=== PATIENT | female | born 2005 | race Caucasian/White ===

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

== ENCOUNTER 2025-03-05 10:42 | Day surgery (SDC) | payer OTHER ==
[~2025-03-05] VITALS: Ht 165.1 cm; Wt 67.1 kg
[~2025-03-05 10:42] MED LIST: Midazolam HCl 1MG / ML 2ML Vial ONE
[2025-03-05] MEDS ORDERED: CeFAZolin Sodium 2,000 MG VIAL ONE (11:03)
[2025-03-05] MEDS ORDERED: Tranexamic Acid 100 ML IV ONE (11:04)
[2025-03-05] MEDS ORDERED: Dexmedetomidine HCL 200 MCG / 2 ML ONE (11:12)
--- NOTE | 2025-03-05 11:33 | NUR ---
03/05/25 1133 Cira Musa ADDUCTOR CANAL BLOCK W/ DR LAMA T/O 1123 START 1124 END 1128 PT TOLERATED PROCEDURE WELL. PT ON 2L O2 VIA N/C THROUGHOUT PROCEDURE. SPO2 AND HR MONITORED THROUGHOUT.
[2025-03-05] MEDS ORDERED: FentaNYL Citrate 50 MCG/ML 2 ML Injection ONE ×2 (11:36→14:11)
[2025-03-05] MEDS ORDERED: Vancomycin HCl 1000 MG ADDvantage ONE (12:03)
[2025-03-05] MEDS ORDERED: ePHEDrine Sulfate 50 MG/ML 1ML Injection ONE (12:11)
--- NOTE | 2025-03-05 12:20 | NUR ---
03/05/25 1220 Aisha Peng ARMS SECURED ON PADDED ARM BOARDS, RIGHT KNEE POST, PILLOW UNDER HEAD, SEAT BELT.
[2025-03-05] MEDS ORDERED: Ondansetron HCl 2 MG / ML 2ML Vial ONE ×2 (13:28→14:10)
[2025-03-05] MEDS ORDERED: HYDROmorphone HCl/Pf 1MG SYR ONE (13:28)
--- NOTE | 2025-03-05 15:04 | NUR ---
03/05/25 1505 Edith Colbert PT RESTING IN BED. COMPLAINS OF 7/10 PAIN TO RIGHT LEG. VSS. POLAR PACK IN PLACE. RN PROVIDED DRINKS AND SNACKS AND PT IS ABLE TO TOLERATE PO INTAKE.
== END 2025-03-05 15:30 | disposition home or self-care (01) ==
LOC: ORSCSDS 10:42
PROVIDERS: Orthopaedic Surgery Sports Medicine
PROC: 0MRN47Z Replacement of Right Knee Bursa and Ligament with Autologous Tissue Substitute, Percutaneous Endoscopic Approach (ICD-10-PCS; principal; 2025-03-05 12:00)
DX: S83.511A Sprain of anterior cruciate ligament of right knee, initial encounter (principal); Y93.66 Activity, soccer
CPT/HCPCS: A9270; C1713; C1776; C1889; J0166; J0690; J1171; J2250; J2405; J2704; J3010; J3373; J7120